=== PATIENT | female | born 1985 | race Caucasian/White ===

== ENCOUNTER 2019-11-25 06:33 | Outpatient (CLI) | payer OTHER, SELFPAY ==
[2019-11-25 07:32] LABS: Basophils Absolute Auto 0.1 K/mm3 (0.0-0.1); Basophils Percent Auto 0.6 % (0.2-1.2); Eosinophils Absolute Auto 0.2 K/mm3 (0-0.3); Eosinophils Percent Auto 1.4 % (0-4.4); Hemoglobin 14.1 g/dL (12.0-15.0); Immature Granulocyte Absolute 0.05 K/mm3 (0.00-0.031); Immature Granulocyte Percent A 0.5 % (0-0.5); Lymphocytes Absolute Auto 2.78 K/mm3 (0.9-3.2); Lymphocytes Percent Auto 26.6 % (18.3-44.2); Mean Corpuscular Hemoglobin 28.1 pg (26-34); Mean Corpuscular Volume 87.6 fl (80-100); Mean Platelet Volume 10.4 fl (7.4-10.4); Monocytes Absolute Auto 0.8 K/mm3 (0.1-0.6); Monocytes Percent Auto 7.4 % (2.6-8.5); Neutrophils Absolute Auto 6.7 K/mm3 (1.3-6.7); Neutrophils Percent Auto 63.5 % (45.5-73.1); Platelet Count Result 363 k/mm3 (150-375); Red Blood Count 5.02 M/mm3 (4.2-5.4); Red Cell Distribution Width 13.6 % (11.5-14.5); White Blood Count 10.5 K/mm3 (4.5-10.0)
[2019-11-25 08:24] LABS: Alanine Aminotransferase 18 U/L (4-35); Albumin Level 4.5 g/dL (3.5-5.1); Alkaline Phosphatase 78 U/L (38-126); Aspartate Amino Transferase 23 U/L (14-36); Bilirubin,Total 0.5 mg/dL (0.2-1.3); Blood Urea Nitrogen 14 mg/dL (7-17); Carbon Dioxide 24 mmol/L (22-30); Chloride 102 mmol/L (98-107); Cholesterol 207 mg/dL (0-200); Estimated Glomerular Filt Rate > 60; Glucose 97 mg/dL (65-105); HDL Direct 51 mg/dL; Potassium 4.3 mmol/L (3.4-5.0); Sodium 141 mmol/L (137-145); Triglycerides 129 mg/dL (<150)
[2019-11-25 08:27] LABS: Creatinine Urine 76.1 mg/dL
[2019-11-25 08:31] LABS: MALB Creatinine Ratio 18.7 mg/g (0-30); Microalbumin Urine Random 14.2 mg/L (0-16.7)
[2019-11-25 08:50] LABS: LDL Cholesterol Direct 132 mg/dL
[2019-11-30 09:18] LABS: Renin 1.62 ng/mL/h (0.25-5.82)
== END 2019-11-25 06:34 | disposition home or self-care (01) ==
PROVIDERS: PCP Internal Medicine; Visit Provider Internal Medicine
DX: I10 Essential (primary) hypertension (principal); Z79.899 Other long term (current) drug therapy
CPT/HCPCS: 36415; 80053; 80061; 82043; 82088; 84244; 84443; 85025

== ENCOUNTER 2020-02-27 09:30 | Outpatient (CLI) | payer OTHER, SELFPAY ==
--- NOTE | 2020-02-27 09:43 | ECG_ITS ---
Measurements Intervals [place] Rate: 87 P: 37 TX: 149 QRS: 10 QRSD: 109 T: 9 QT: 369 QTc: 446 Interpretive Statements SINUS RHYTHM VENTRICULAR PREMATURE COMPLEX BORDERLINE T WAVE ABNORMALITY- INFERIOR LEADS BORDERLINE ECG Electronically Signed On 02-27-2020 9:58:41 CDT by Gordy Kendall D.O.
== END 2020-02-27 09:31 | disposition home or self-care (01) ==
PROVIDERS: PCP Internal Medicine; Visit Provider Internal Medicine
DX: I10 Essential (primary) hypertension (principal)
CPT/HCPCS: 93005